=== PATIENT | female | born 1935 | race Caucasian/White ===

== ENCOUNTER 2016-10-29 12:04 | Emergency (ER) | payer MEDICAID, MEDICARE ==
[2016-10-29] MEDS ORDERED: Sodium Chloride 0.9% 1,000 ML IV SCH (12:45)
--- NOTE | 2016-10-29 14:00 | EDM.PDOC ---
ED HPI GENERAL MEDICAL PROBLEM - General Chief Complaint: Syncope Stated Complaint: PASSED OUT; DIZZINESS Time Seen by Provider: 10/29/16 12:35 Source of Information: Reports: Patient History Limitations: Reports: No Limitations - History of Present Illness INITIAL COMMENTS - FREE TEXT/NARRATIVE: History of present illness: [80-year-old female who was playing mini golf and had a brief syncopal episode with a B3 to 4 seconds of loss of consciousness. One of the family members is a family physician and assessed her at the time in her pulse was a little thready and weak but she quickly gained consciousness and came into the emergency room to be evaluated. She is on 3 different antihypertensive medications she takes all of them at the same time in the morning. One of them is hydrochlorothiazide. She otherwise been feeling well. At the time that I'm seeing her in the ER she feels well and somewhat annoyed that she is in the ER and is anxious to go. Denies any chest pain or shortness of breath.] Review of systems: As per history of present illness and below otherwise all systems reviewed and negative. Past medical history: As per history of present illness and as reviewed below otherwise noncontributory. Surgical history: As per history of present illness and as reviewed below otherwise noncontributory. Social history: No reported history of drug or alcohol abuse. Family history: As per history of present illness and as reviewed below otherwise noncontributory. Physical exam: HEENT: Atraumatic, normocephalic, Lungs: Clear to auscultation, Heart: S1S2, regular, Abdomen: Soft, nondistended, nontender. Pelvis: Stable nontender. Genitourinary: Deferred. Rectal: Deferred. Extremities: Atraumatic, negative for cords or calf pain. Neuro: Awake, alert, oriented. Exam nonfocal. Diagnostics: [CBC and basic metabolic panel were done and her BUN/creatinine suggest that she was and is a little dehydrated. The hydrochlorothiazide of course is contributing to this finding. 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 She was in a sinus rhythm with no current ischemia or injury.] Therapeutics: [She received IV fluids while in the ER] Impression: [Syncope Dehydration] Plan: [We discussed the need to stay well hydrated and we are recommending that she not take all of her blood pressure medications at the same time. ] Definitive disposition and diagnosis as appropriate pending reevaluation and review of above. - Related Data Allergies Allergy/AdvReac Type Severity Reaction Status Date / Time No Known Allergies Allergy Verified 10/29/16 12:45 Home Meds: Home Meds Hydrochlorothiazide 1 tab PO DAILY 10/29/16 [History] Lisinopril 1 tab PO DAILY 10/29/16 [History] Lovastatin 1 tab PO DAILY 10/29/16 [History] amLODIPine [Norvasc] 1 tab PO DAILY 10/29/16 [History] Past Medical History - Past Health History Medical/Surgical History: Denies Medical/Surgical History Social & Family History - Tobacco Use Smoking Status *Q: Never Smoker ED ROS GENERAL - Review of Systems Review Of Systems: ROS reveals no pertinent complaints other than HPI. - Physical Exam Exam: See Below Course - Vital Signs Last Recorded V/S: Last Vital Signs Temp 35.6 C 10/29/16 13:48 Pulse 91 10/29/16 13:48 Resp 18 10/29/16 13:48 BP 129/95 H 10/29/16 13:48 Pulse Ox 95 10/29/16 13:48 - Orders/Labs/Meds Orders: Active Orders 24 hr Category Date Time Status EKG Documentation Completion [RC] ASDIRECTED Care 10/29/16 12:47 Active Sodium Chloride 0.9% [Normal Saline] 1,000 ml Med 10/29/16 12:45 Active IV ASDIRECTED EKG 12 Lead [EK] Stat Ther 10/29/16 12:47 Ordered Medication Orders Sodium Chloride (Normal Saline) 1,000 mls @ 500 mls/hr IV ASDIRECTED ZANE Last Admin: 10/29/16 13:50 Dose: 500 mls/hr Labs: Laboratory Tests 10/29/16 10/29/16 Range/Units 12:50 12:50 WBC 6.3 (4.5-11.0) K/uL RBC 4.62 (3.30-5.50) M/uL Hgb 14.8 (12.0-15.0) g/dL Hct 43.5 (36.0-48.0) % MCV 94 (80-98) fL MCH 32 H (27-31) pg MCHC 34 (32-36) % Plt Count 188 (150-400) K/uL Neut % (Auto) 64 (36-66) % Lymph % (Auto) 18 L (24-44) % [place] % (Auto) 15 H (2-6) % Eos % (Auto) 1 L (2-4) % Baso % (Auto) 1 (0-1) % Sodium 138 L (140-148) mmol/L Potassium 3.9 (3.6-5.2) mmol/L Chloride 101 (100-108) mmol/L Carbon Dioxide 26 (21-32) mmol/L Anion Gap 14.9 H (5.0-14.0) mmol/L BUN 29 H (7-18) mg/dL Creatinine 1.4 H (0.6-1.0) mg/dL Est Cr Clr Drug Dosing 27.88 mL/min Estimated GFR (MDRD) 36 L (>60) Glucose 114 H (74-106) mg/dL Calcium 9.5 (8.5-10.1) mg/dL Meds: Medications Generic Name Dose Route Start Last Admin Trade Name Ankush PRN Reason Stop Dose Admin Sodium Chloride 1,000 mls @ 500 mls/hr 10/29/16 12:45 10/29/16 13:50 Normal Saline IV 500 mls/hr ASDIRECTED ZANE Administration Departure - Departure Time of Disposition: 13:58 Disposition: Home, Self-Care 01 Condition: Good Clinical Impression: Dehydration Syncope Qualifiers: Syncope type: unspecified Qualified Code(s): R55 - Syncope and collapse - Discharge Information Forms: ED Department Discharge Additional Instructions: Based on the EKG that we did it appears that you did have at one point a heart attack. I would recommend that you follow-up with your doctor and he may want to perform an echocardiogram to investigate this further. As was suggested staggering your blood pressure medications will probably help to minimize the chance of this happening again. And of course once again you will need to remember to stay well hydrated especially if you are out in the hot sun. - My Orders Last 24 Hours: My Active Orders 10/29/16 12:45 Sodium Chloride 0.9% [Normal Saline] 1,000 ml IV ASDIRECTED 10/29/16 12:47 EKG Documentation Completion [RC] ASDIRECTED EKG 12 Lead [EK] Stat - Assessment/Plan Last 24 Hours: My Active Orders 10/29/16 12:45 Sodium Chloride 0.9% [Normal Saline] 1,000 ml IV ASDIRECTED 10/29/16 12:47 EKG Documentation Completion [RC] ASDIRECTED EKG 12 Lead [EK] Stat
[2016-10-29 14:23] VITALS: BP 142/76
== END 2016-10-29 15:04 | disposition home or self-care (01) ==
LOC: JP.ED 12:04
DX: E86.0 Dehydration (principal); R55 Syncope and collapse; Z79.899 Other long term (current) drug therapy
CPT/HCPCS: 36415; 80048; 85025; 93005; 96360; 99284; J7040; 93010; 99283

== ENCOUNTER 2019-09-26 09:33 | Inpatient (IN) | payer MEDICARE ==
[2019-09-26] MEDS ORDERED: Sodium Chloride 0.9% 10 ML Syringe IV PRN (11:17)
[2019-09-26] MEDS ORDERED: Digoxin 500 MCG/2 ML Amp IV ONE ×2 (11:30→14:00)
--- NOTE | 2019-09-26 11:58 | CR ---
CHEST: Portable 09/26/2019 11:21 AM CLINICAL HISTORY:Rapid heart rate COMPARISON:None FINDINGS: The heart is enlarged. Pulmonary vascularity appears mildly cephalized. There is patchy density in both infrahilar regions. Some of this may be chronic. There are atherosclerotic changes in the aorta. There appears to be a large hiatal hernia. IMPRESSION: Cardiomegaly with vascular cephalization may represent some pulmonary venous hypertension Patchy infrahilar densities bilaterally. These are exaggerated by what appears to be a large retrocardiac hiatal hernia. This should be correlated with upright two-view chest when patient's condition allows
--- NOTE | 2019-09-26 13:18 | PCM.HP.2 ---
H&P History of Present Illness - General Date of Service: 09/26/19 Source of Information: Patient History Limitations: Reports: Altered Mental Status - History of Present Illness Initial Comments - Free Text/Narative: She recently had a Holter monitor and found to be in atrial fib. with a heart rate up to 193 beats/min. She had not been feeling good. She came in 1 week ago with a systolic blood pressure of <100. Medicine was stopped which improved her BP but the heart rate elevated. She had been on Amlodipine and Lisinopril these were both stopped. ECG did not show atrial fib. She was started on Metoprolol but still had tachycardia but BP improved when not taking Lisinopril and Amlodipine. She is admitted to control the heart rate and still control the BP. She has had no syncope. Onset of Symptoms: Reports: Gradual - Related Data Allergies/Adverse Reactions: Allergies Allergy/AdvReac Type Severity Reaction Status Date / Time No Known Allergies Allergy Verified 10/29/16 12:45 Home Medications: Home Meds Hydrochlorothiazide 25 mg PO DAILY 10/29/16 [History] Lovastatin 20 mg PO DAILY 10/29/16 [History] Calcium Carbonate/Vitamin D3 [Calcium 600 + Vit D 200] 1 tab PO DAILY 09/26/19 [History] Metoprolol Succinate 25 mg PO DAILY 09/26/19 [History] Multivitamin [Multivitamins] 1 tab PO DAILY 09/26/19 [History] Past Medical History - Past Health History Medical/Surgical History: Denies Medical/Surgical History Cardiovascular History: Reports: High Cholesterol, Hypertension [facility] History: Reports: - Infectious Disease History Infectious Disease History: Reports: Chicken Pox, Measles Social & Family History - Tobacco Use Smoking Status *Q: Never Smoker - Caffeine Use Caffeine Use: Reports: None - Recreational Drug Use Recreational Drug Use: No H&P Review of Systems - Review of Systems: Review Of Systems: See Below General: Reports: Weakness, Decreased Appetite HEENT: Reports: No Symptoms Pulmonary: Reports: Shortness of Breath Cardiovascular: Reports: Dyspnea on Exertion Gastrointestinal: Reports: No Symptoms Genitourinary: Reports: No Symptoms Musculoskeletal: Reports: No Symptoms Skin: Reports: No Symptoms Psychiatric: Reports: Other (loss of memory which has been a gradual onset.) Exam - Exam Exam: See Below - Vital Signs Vital Signs: Last Vital Signs Temp 98 F 09/26/19 10:13 Pulse 124 H 09/26/19 11:35 Resp 20 09/26/19 10:13 BP 122/90 09/26/19 10:13 Pulse Ox 90 L 09/26/19 10:13 Weight: 140 lb - Exam General: Cooperative, Moderate Distress HEENT: PERRLA, Hearing Intact, Mucosa Moist & [place], Nares Patent, Normal Nasal Septum, Posterior Pharynx Clear, Conjunctiva Clear, EOMI, EACs Clear, TMs Clear Neck: Supple, Trachea Midline, 2 Lungs: Clear to Auscultation Cardiovascular: Irregular Rhythm, Tachycardia GI/Abdominal Exam: Normal Bowel Sounds Back Exam: Normal Inspection, Full Range of Motion Extremities: Normal Inspection Peripheral Pulses: 1+: Radial (L), Radial (R) Skin: Warm, Dry Neuro Extensive - Mental Status: Other (Mild loss of memory) DTR: 1+: Bicep (L), Bicep (R) - Patient Data Lab Results Last 24 hrs: Laboratory Results - last 24 hr 09/26/19 09/26/19 09/26/19 Range/Units 11:24 11:24 11:24 WBC 8.5 (4.5-11.0) K/uL RBC 4.28 (3.30-5.50) M/uL Hgb 13.8 (12.0-15.0) g/dL Hct 41.3 (36.0-48.0) % MCV 97 (80-98) fL MCH 32 H (27-31) pg MCHC 33 (32-36) % Plt Count 166 (150-400) K/uL Neut % (Auto) 72 H (36-66) % Lymph % (Auto) 8 L (24-44) % [place] % (Auto) 20 H (2-6) % Eos % (Auto) 0 L (2-4) % Baso % (Auto) 0 (0-1) % Sodium 135 L (140-148) mmol/L Potassium 4.5 (3.6-5.2) mmol/L Chloride 99 L (100-108) mmol/L Carbon Dioxide 25 (21-32) mmol/L Anion Gap 15.5 H (5.0-14.0) mmol/L BUN 16 (7-18) mg/dL Creatinine 1.1 H (0.6-1.0) mg/dL Est Cr Clr Drug Dosing 36.36 mL/min Estimated GFR (MDRD) 47 L (>60) Glucose 120 H (74-106) mg/dL Calcium 9.1 (8.5-10.1) mg/dL Total Bilirubin 1.2 H (0.2-1.0) mg/dL AST 22 (15-37) U/L ALT 38 (12-78) U/L Alkaline Phosphatase 83 (46-116) U/L Troponin I < 0.017 (0.000-0.056) ng/mL Total Protein 6.8 (6.4-8.2) g/dL Albumin 3.5 (3.4-5.0) g/dL Globulin 3.3 (2.3-3.5) g/dL Albumin/Globulin Ratio 1.1 L (1.2-2.2) Result Diagrams: 09/26/19 11:24 09/26/19 11:24 Sepsis Event Note - Evaluation Sepsis Screening Result: No Definite Risk - Focused Exam Vital Signs: Vital Signs Temp Temp Pulse Resp BP BP Pulse Ox 09/26/19 11:35 124 H 09/26/19 10:13 98 F 128 H 20 122/90 90 L 09/26/19 09:50 98 F 140 H 27 H 130/85 87 L Date Exam was Performed: 09/27/19 Time Exam was Performed: 07:53 Problem List Initiated/Reviewed/Updated: Yes Orders Last 24hrs: Active Orders 24 hr Category Date Time Status EKG Documentation Completion [RC] ASDIRECTED Care 09/26/19 11:09 Active Regular Diet [DIET] Diet 09/26/19 Lunch Active Digoxin [Lanoxin] Med 09/26/19 14:00 Once 250 mcg IV ONETIME ONE Sodium Chloride 0.9% [Saline Flush] Med 09/26/19 11:17 Active 10 ml IV ASDIRECTED PRN EKG 12 Lead [EK] Routine Ther 09/26/19 11:08 Ordered Medication Orders Digoxin (Lanoxin) 250 mcg IV ONETIME ONE Stop: 09/26/19 14:01 Sodium Chloride (Saline Flush) 10 ml IV ASDIRECTED PRN PRN Reason: LINE MAINTENCE Assessment/Plan Comment:: Assessment/Plan: #1. Atrial Fibrillation. Will consider starting on Amiodarone or Flecainide later but not presently as we need rate control first as maybe this will be all we need if we control the rate the fib will be cont rolled. Will continue with the metoprolol at the present time and increase as possible to control the rate and not cause hypotension. An echocardiogram is pending in the morning. #2. Past history of HTN. - Mortality Measure Prognosis:: Good
[2019-09-26] MEDS ORDERED: Metoprolol Tartrate 25 MG Tab PO ONE (17:28)
[2019-09-26] MEDS ORDERED: Apixaban 2.5 MG Tab PO ONE (17:35)
[2019-09-26] MEDS ORDERED: Melatonin 3 MG Tab PO ONE (23:45)
[2019-09-27] MEDS ORDERED: Metoprolol Succinate 50 MG Tab.ER PO ONE (02:21)
--- NOTE | 2019-09-27 08:03 | PCM.PN ---
- General Info Date of Service: 09/27/19 Functional Status: Reports: Pain Controlled - Review of Systems General: Reports: Weakness HEENT: Reports: No Symptoms Pulmonary: Reports: No Symptoms Cardiovascular: Reports: No Symptoms Gastrointestinal: Reports: No Symptoms Genitourinary: Reports: No Symptoms Musculoskeletal: Reports: No Symptoms Skin: Reports: No Symptoms Neurological: Reports: No Symptoms Psychiatric: Reports: Confusion - Patient Data Vitals - Most Recent: Last Vital Signs Temp 97.7 F 09/27/19 07:00 Pulse 84 09/27/19 07:00 Resp 20 09/27/19 07:00 BP 128/76 09/27/19 07:00 Pulse Ox 94 L 09/27/19 07:00 Weight - Most Recent: 140 lb Lab Results Last 24 Hours: Laboratory Results - last 24 hr 09/26/19 09/26/19 09/26/19 Range/Units 11:24 11:24 11:24 WBC 8.5 (4.5-11.0) K/uL RBC 4.28 (3.30-5.50) M/uL Hgb 13.8 (12.0-15.0) g/dL Hct 41.3 (36.0-48.0) % MCV 97 (80-98) fL MCH 32 H (27-31) pg MCHC 33 (32-36) % Plt Count 166 (150-400) K/uL Neut % (Auto) 72 H (36-66) % Lymph % (Auto) 8 L (24-44) % [place] % (Auto) 20 H (2-6) % Eos % (Auto) 0 L (2-4) % Baso % (Auto) 0 (0-1) % Sodium 135 L (140-148) mmol/L Potassium 4.5 (3.6-5.2) mmol/L Chloride 99 L (100-108) mmol/L Carbon Dioxide 25 (21-32) mmol/L Anion Gap 15.5 H (5.0-14.0) mmol/L BUN 16 (7-18) mg/dL Creatinine 1.1 H (0.6-1.0) mg/dL Est Cr Clr Drug Dosing 36.36 mL/min Estimated GFR (MDRD) 47 L (>60) Glucose 120 H (74-106) mg/dL Calcium 9.1 (8.5-10.1) mg/dL Total Bilirubin 1.2 H (0.2-1.0) mg/dL AST 22 (15-37) U/L ALT 38 (12-78) U/L Alkaline Phosphatase 83 (46-116) U/L Troponin I < 0.017 (0.000-0.056) ng/mL Total Protein 6.8 (6.4-8.2) g/dL Albumin 3.5 (3.4-5.0) g/dL Globulin 3.3 (2.3-3.5) g/dL Albumin/Globulin Ratio 1.1 L (1.2-2.2) Digoxin (0.90-2.00) ng/mL 09/27/19 Range/Units 04:42 WBC (4.5-11.0) K/uL RBC (3.30-5.50) M/uL Hgb (12.0-15.0) g/dL Hct (36.0-48.0) % MCV (80-98) fL MCH (27-31) pg MCHC (32-36) % Plt Count (150-400) K/uL Neut % (Auto) (36-66) % Lymph % (Auto) (24-44) % [place] % (Auto) (2-6) % Eos % (Auto) (2-4) % Baso % (Auto) (0-1) % Sodium (140-148) mmol/L Potassium (3.6-5.2) mmol/L Chloride (100-108) mmol/L Carbon Dioxide (21-32) mmol/L Anion Gap (5.0-14.0) mmol/L BUN (7-18) mg/dL Creatinine (0.6-1.0) mg/dL Est Cr Clr Drug Dosing mL/min Estimated GFR (MDRD) (>60) Glucose (74-106) mg/dL Calcium (8.5-10.1) mg/dL Total Bilirubin (0.2-1.0) mg/dL AST (15-37) U/L ALT (12-78) U/L Alkaline Phosphatase (46-116) U/L Troponin I (0.000-0.056) ng/mL Total Protein (6.4-8.2) g/dL Albumin (3.4-5.0) g/dL Globulin (2.3-3.5) g/dL Albumin/Globulin Ratio (1.2-2.2) Digoxin 1.36 (0.90-2.00) ng/mL Med Orders - Current: Current Medications Digoxin (Lanoxin) 250 mcg PO DAILY@1300 [facility] Melatonin (Melatonin) 9 mg PO BEDTIME [facility] Metoprolol Succinate (Toprol Xl) 100 mg PO DAILY [facility] Sodium Chloride (Saline Flush) 10 ml IV ASDIRECTED PRN PRN Reason: LINE MAINTENCE Discontinued Medications Apixaban (Eliquis) 2.5 mg PO BID ONE Stop: 09/26/19 17:36 Last Admin: 09/26/19 17:50 Dose: 2.5 mg Documented by: Digoxin (Lanoxin) 500 mcg IV ONETIME ONE Stop: 09/26/19 11:31 Last Admin: 09/26/19 11:35 Dose: 500 mcg Documented by: Digoxin (Lanoxin) 250 mcg IV ONETIME ONE Stop: 09/26/19 14:01 Last Admin: 09/26/19 13:51 Dose: 250 mcg Documented by: Digoxin (Lanoxin) 250 mcg PO ONETIME ONE Stop: 09/27/19 17:35 Melatonin (Melatonin) 9 mg PO BEDTIME [facility] Melatonin (Melatonin) 9 mg PO ONETIME ONE Stop: 09/26/19 23:46 Last Admin: 09/27/19 00:00 Dose: 9 mg Documented by: Metoprolol Succinate (Toprol Xl) 50 mg PO DAILY [facility] Metoprolol Succinate (Toprol Xl) 75 mg PO ONETIME ONE Stop: 09/27/19 02:22 Last Admin: 09/27/19 02:46 Dose: 75 mg Documented by: Metoprolol Tartrate (Lopressor) 25 mg PO ONETIME ONE Stop: 09/26/19 17:29 Last Admin: 09/26/19 17:51 Dose: 25 mg Documented by: - Exam General: Cooperative, No Acute Distress HEENT: Pupils Equal, Pupils Reactive, EOMI, Mucous Membr. Moist/[place] Neck: Supple Cardiovascular: Irregular Rhythm, Tachycardia GI/Abdominal Exam: Normal Bowel Sounds, Soft, Non-Tender, No Organomegaly, No Distention, No Abnormal Bruit, No Mass, Pelvis Stable Back Exam: Normal Inspection, Full Range of Motion Extremities: Non-Tender Peripheral Pulses: 1+: Radial (L), Radial (R) Skin: Warm, Dry, Intact Psy/Mental Status: Labile Mood Sepsis Event Note - Evaluation Sepsis Screening Result: No Definite Risk - Focused Exam Vital Signs: Vital Signs Temp Pulse Resp BP BP Pulse Ox 09/27/19 07:00 97.7 F 84 20 128/76 94 L 09/27/19 06:00 95 20 09/27/19 04:44 112 H 26 H 143/101 H 92 L 09/27/19 04:00 115 H 24 H 09/27/19 03:22 117 H 150/112 H 09/27/19 03:00 133 H 09/27/19 02:46 121 H 139/95 H 09/27/19 02:00 121 H 09/27/19 01:00 119 H 21 H 139/95 H 94 L 09/27/19 00:00 121 H 09/26/19 22:52 95 09/26/19 21:51 94 09/26/19 21:00 99 09/26/19 20:00 97 Date Exam was Performed: 09/27/19 Time Exam was Performed: 07:58 - Problem List Review Problem List Initiated/Reviewed/Updated: Yes - My Orders Last 24 Hours: My Active Orders 09/26/19 11:08 EKG 12 Lead [EK] Routine 09/26/19 11:09 EKG Documentation Completion [RC] ASDIRECTED 09/26/19 11:17 Sodium Chloride 0.9% [Saline Flush] 10 ml IV ASDIRECTED PRN 09/26/19 Lunch Regular Diet [DIET] 09/27/19 07:00 Echo Comp wo Cont [US] Timed 09/27/19 09:00 Metoprolol Succinate [Toprol XL] 100 mg PO DAILY 09/27/19 13:00 Digoxin [Lanoxin] 250 mcg PO DAILY@1300 09/27/19 21:00 Melatonin 9 mg PO BEDTIME - Plan Plan:: Assessment/Plan: #1. Atrial Fibrillation. I have increased metoprolol to 100 mg ER. An echocardiogram is pending this morning. Will discharge home in the morning if BP is stable and the heart rate is improved. Dig level is 1.36. #2. Past history of HTN.
[2019-09-27] MEDS ORDERED: Metoprolol Succinate 50 MG Tab.ER PO SCH (09:00)
[2019-09-27] MEDS: Metoprolol Succinate 50 MG Tab.ER PO SCH (09:28)
[2019-09-27] MEDS: Apixaban 2.5 MG Tab PO SCH ×2 (09:28→20:37)
[2019-09-27] MEDS ORDERED: Sodium Chloride 0.9% 10 ML Syringe FLUSH ONE (11:21)
[2019-09-27] MEDS ORDERED: Iopamidol 755 Mg/ML 100 ML Bottle IV SCH (11:30)
[2019-09-27] MEDS ORDERED: Sodium Chloride 0.9% 100 ML IV SCH (11:30)
[2019-09-27] MEDS ORDERED: Digoxin 125 MCG Tab PO SCH (13:00)
--- NOTE | 2019-09-27 13:41 | CT ---
Ang Chest CLINICAL HISTORY: Hypoxia TECHNIQUE: Thin section axial contiguous tomographic sections were taken through the chest after bolus IV iodinated contrast administration. Coronal and sagittal images were reconstructed. Auto dosage reduction and iterative reconstruction techniques employed. FINDINGS: Patient has small to moderate bilateral pleural effusions. 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 There are some groundglass opacities in both lower lobes. This may represent some mild dependent atelectasis and edema. There is a moderate amount of contrast still in the vena cava and right atrium and right ventricle. There is some reflux into the IVC and hepatic veins suggesting some cardiac decompensation. There is no filling defects in the pulmonary outflow tract or pulmonary arteries. Aorta has atheromatous change. No mediastinal mass or lymphadenopathy is identified. IMPRESSION: No evidence pulmonary embolus Delay in contrast through the heart with some reflux into the IVC and hepatic veins suggests cardiac decompensation. Small to moderate bilateral pleural effusions. There is some mild groundglass opacifications in both lower lobes which may represent some mild edema Large hiatal hernia
[2019-09-27] MEDS ORDERED: Furosemide 20 MG/2 ML VIAL IVPUSH ONE (14:00)
[2019-09-27] MEDS ORDERED: Digoxin 125 MCG Tab PO ONE (17:34)
[2019-09-27] MEDS ORDERED: Melatonin 3 MG Tab PO SCH ×2 (21:00→23:22)
[2019-09-28 07:26] VITALS: BP 155/94
[2019-09-28 08:09] VITALS: PULSE 104
[2019-09-28] MEDS: Apixaban 2.5 MG Tab PO SCH (08:09)
[2019-09-28] MEDS: Metoprolol Succinate 50 MG Tab.ER PO SCH (08:09)
--- NOTE | 2019-09-28 09:28 | PCM.PN ---
- General Info Date of Service: 09/28/19 Subjective Update: She is resting presently. She was confused most of the night. Functional Status: Reports: Pain Controlled - Review of Systems General: Reports: Weakness HEENT: Reports: No Symptoms Pulmonary: Reports: No Symptoms Cardiovascular: Reports: No Symptoms Gastrointestinal: Reports: No Symptoms Genitourinary: Reports: No Symptoms Musculoskeletal: Reports: No Symptoms Skin: Reports: No Symptoms Neurological: Reports: No Symptoms Psychiatric: Reports: Confusion - Patient Data Vitals - Most Recent: Last Vital Signs Temp 96.8 F L 09/28/19 07:00 Pulse 104 H 09/28/19 08:09 Resp 20 09/28/19 08:00 BP 155/94 H 09/28/19 08:09 Pulse Ox 91 L 09/28/19 08:00 Weight - Most Recent: 140 lb 0.002 oz I&O - Last 24 Hours: Intake & Output 09/27/19 09/28/19 09/28/19 22:59 06:59 14:59 Intake Total 180 Output Total 700 Balance -520 Med Orders - Current: Current Medications Apixaban (Eliquis) 2.5 mg PO BID [facility] Last Admin: 09/28/19 08:09 Dose: 2.5 mg Documented by: Digoxin (Lanoxin) 250 mcg PO DAILY@1300 [facility] Last Admin: 09/27/19 14:05 Dose: 250 mcg Documented by: Melatonin (Melatonin) 9 mg PO BEDTIME [facility] Last Admin: 09/27/19 20:37 Dose: 9 mg Documented by: Metoprolol Succinate (Toprol Xl) 100 mg PO DAILY [facility] Last Admin: 09/28/19 08:09 Dose: 100 mg Documented by: Sodium Chloride (Saline Flush) 10 ml IV ASDIRECTED PRN PRN Reason: LINE MAINTENCE Discontinued Medications Apixaban (Eliquis) 2.5 mg PO BID ONE Stop: 09/26/19 17:36 Last Admin: 09/26/19 17:50 Dose: 2.5 mg Documented by: Digoxin (Lanoxin) 500 mcg IV ONETIME ONE Stop: 09/26/19 11:31 Last Admin: 09/26/19 11:35 Dose: 500 mcg Documented by: Digoxin (Lanoxin) 250 mcg IV ONETIME ONE Stop: 09/26/19 14:01 Last Admin: 09/26/19 13:51 Dose: 250 mcg Documented by: Digoxin (Lanoxin) 250 mcg PO ONETIME ONE Stop: 09/27/19 17:35 Furosemide (Lasix) 20 mg IVPUSH ONETIME ONE Stop: 09/27/19 14:01 Last Admin: 09/27/19 14:06 Dose: 20 mg Documented by: Sodium Chloride (Normal Saline) 100 mls @ 3 mls/sec IV ASDIRECTED [facility] Stop: 09/27/19 11:31 Last Admin: 09/27/19 13:07 Dose: 4 mls/sec Documented by: Iopamidol (Isovue-370 (76%)) 100 ml IV . DIRECTED [facility] Stop: 09/27/19 12:30 Last Admin: 09/27/19 13:08 Dose: 100 ml Documented by: Melatonin (Melatonin) 9 mg PO BEDTIME [facility] Melatonin (Melatonin) 9 mg PO ONETIME ONE Stop: 09/26/19 23:46 Last Admin: 09/27/19 00:00 Dose: 9 mg Documented by: Metoprolol Succinate (Toprol Xl) 50 mg PO DAILY [facility] Metoprolol Succinate (Toprol Xl) 75 mg PO ONETIME ONE Stop: 09/27/19 02:22 Last Admin: 09/27/19 02:46 Dose: 75 mg Documented by: Metoprolol Tartrate (Lopressor) 25 mg PO ONETIME ONE Stop: 09/26/19 17:29 Last Admin: 09/26/19 17:51 Dose: 25 mg Documented by: Sodium Chloride (Saline Flush) 10 ml FLUSH ONETIME ONE Stop: 09/27/19 11:22 Last Admin: 09/27/19 13:07 Dose: 10 ml Documented by: - Exam General: Cooperative, No Acute Distress HEENT: Pupils Equal, Pupils Reactive, EOMI, Mucous Membr. Moist/[place] Neck: Supple Lungs: Clear to Auscultation, Normal Respiratory Effort Cardiovascular: Irregular Rhythm GI/Abdominal Exam: Normal Bowel Sounds, Soft, Non-Tender, No Organomegaly, No Distention, No Abnormal Bruit, No Mass, Pelvis Stable Extremities: Normal Inspection, Normal Range of Motion, Non-Tender, No Pedal Edema, Normal Capillary Refill Peripheral Pulses: 1+: Radial (L), Radial (R) Skin: Warm, Dry, Intact Neurological: No New Focal Deficit Psy/Mental Status: Other (confusion with memory loss) Sepsis Event Note - Evaluation Sepsis Screening Result: No Definite Risk - Focused Exam Vital Signs: Vital Signs Temp Pulse Resp BP BP Pulse Ox 09/28/19 08:09 104 H 155/94 H 09/28/19 08:00 95 20 155/94 H 91 L 09/28/19 07:00 96.8 F L 98 21 H 155/94 H 92 L 09/28/19 05:18 91 22 H 09/28/19 04:51 97 09/28/19 04:00 95 24 H 09/28/19 03:00 97.6 F 98 22 H 152/98 H 93 L 09/28/19 01:00 99 09/28/19 00:00 76 09/27/19 23:00 104 H 20 136/74 3 L 09/27/19 21:56 95 Date Exam was Performed: 09/28/19 Time Exam was Performed: 09:22 - Problem List Review Problem List Initiated/Reviewed/Updated: Yes - My Orders Last 24 Hours: My Active Orders 09/27/19 09:00 Apixaban [Eliquis] 2.5 mg PO BID Metoprolol Succinate [Toprol XL] 100 mg PO DAILY 09/27/19 13:00 Digoxin [Lanoxin] 250 mcg PO DAILY@1300 09/27/19 21:00 Melatonin 9 mg PO BEDTIME - Plan Plan:: Assessment/Plan: #1. Atrial Fibrillation. I have increased metoprolol to 100 mg ER. An echocardiogram reported verbally a normal EF but waiting for the official report which I expect will show right heart failure. Will discharge home today. #2. Hypoxemia: will follow as an outpatient and begin oxygen if needed. #3. Past history of HTN.
[2019-09-28] MEDS ORDERED: Hydrochlorothiazide 25 MG Tab PO ONE (09:35)
--- NOTE | 2019-09-28 09:40 | PCM.DCSUM1 ---
Discharge Summary - Hospital Course Free Text/Narrative:: Admitted with a documented history of tachycardia and an irregular heart rate. Diagnosis: Stroke: No - Discharge Data Discharge Date: 09/28/19 Discharge Disposition: Home, Self-Care 01 Condition: Good - Referral to Home Health Primary Care Physician: Andres Warren Sr, MD - Patient Summary/Data Hospital Course: Started on digoxin and increased the Metoprolol and the heart rate and blood pressure improved. She was confused most of the time especially at night while in the hospital. Oxygen level was low and had a CT with PE protocol which was neg. for a PE but showed right heart concern. The echocardiogram showed a normal EF but do not have the official report which I expect will show right heart failure. - Patient Instructions Diet: Heart Healthy Diet Activity: As Tolerated - Discharge Plan *PRESCRIPTION DRUG MONITORING PROGRAM REVIEWED*: No Prescriptions/Med Rec: Digoxin [Digitek] 125 mcg PO DAILY 30 Days #30 tablet Home Medications: Home Meds Hydrochlorothiazide 25 mg PO DAILY 10/29/16 [History] Lovastatin 20 mg PO DAILY 10/29/16 [History] Calcium Carbonate/Vitamin D3 [Calcium 600 + Vit D 200] 1 tab PO DAILY 09/26/19 [History] Apixaban [Eliquis] 2.5 mg PO BID tablet 09/28/19 [Rx] Digoxin [Digitek] 125 mcg PO DAILY 30 Days #30 tablet 09/28/19 [Rx] Metoprolol Succinate [Toprol XL 50mg] 100 mg PO DAILY tab.er 09/28/19 [Rx] - Discharge Summary/Plan Comment DC Time >30 min.: No Discharge Summary/Plan Comment: Assessment/Plan: #1. Atrial Fibrillation. I have increased metoprolol to 100 mg ER. An echocardiogram reported verbally a normal EF but waiting for the official report which I expect will show right heart failure. Will discharge home today. #2. Hypoxemia: will follow as an outpatient and begin oxygen if needed. #3. Past history of HTN. - General Info Date of Service: 09/28/19 Functional Status: Reports: Pain Controlled - Review of Systems General: Reports: Weakness HEENT: Reports: No Symptoms Pulmonary: Reports: No Symptoms Cardiovascular: Reports: No Symptoms Gastrointestinal: Reports: No Symptoms Genitourinary: Reports: No Symptoms Musculoskeletal: Reports: No Symptoms Skin: Reports: No Symptoms Neurological: Reports: No Symptoms Psychiatric: Reports: Confusion - Patient Data Vitals - Most Recent: Last Vital Signs Temp 96.8 F L 09/28/19 07:00 Pulse 104 H 09/28/19 08:09 Resp 20 09/28/19 08:00 BP 155/94 H 09/28/19 08:09 Pulse Ox 91 L 09/28/19 08:00 Weight - Most Recent: 140 lb 0.002 oz I&O - Last 24 hours: Intake & Output 09/27/19 09/28/19 09/28/19 22:59 06:59 14:59 Intake Total 180 Output Total 700 Balance -520 Med Orders - Current: Current Medications Apixaban (Eliquis) 2.5 mg PO BID [facility] Last Admin: 09/28/19 08:09 Dose: 2.5 mg Documented by: Digoxin (Lanoxin) 250 mcg PO DAILY@1300 [facility] Last Admin: 09/27/19 14:05 Dose: 250 mcg Documented by: Hydrochlorothiazide (Hydrochlorothiazide) 25 mg PO ONETIME ONE Stop: 09/28/19 09:36 Melatonin (Melatonin) 9 mg PO BEDTIME [facility] Last Admin: 09/27/19 20:37 Dose: 9 mg Documented by: Metoprolol Succinate (Toprol Xl) 100 mg PO DAILY [facility] Last Admin: 09/28/19 08:09 Dose: 100 mg Documented by: Sodium Chloride (Saline Flush) 10 ml IV ASDIRECTED PRN PRN Reason: LINE MAINTENCE Discontinued Medications Apixaban (Eliquis) 2.5 mg PO BID ONE Stop: 09/26/19 17:36 Last Admin: 09/26/19 17:50 Dose: 2.5 mg Documented by: Digoxin (Lanoxin) 500 mcg IV ONETIME ONE Stop: 09/26/19 11:31 Last Admin: 09/26/19 11:35 Dose: 500 mcg Documented by: Digoxin (Lanoxin) 250 mcg IV ONETIME ONE Stop: 09/26/19 14:01 Last Admin: 09/26/19 13:51 Dose: 250 mcg Documented by: Digoxin (Lanoxin) 250 mcg PO ONETIME ONE Stop: 09/27/19 17:35 Furosemide (Lasix) 20 mg IVPUSH ONETIME ONE Stop: 09/27/19 14:01 Last Admin: 09/27/19 14:06 Dose: 20 mg Documented by: Sodium Chloride (Normal Saline) 100 mls @ 3 mls/sec IV ASDIRECTED [facility] Stop: 09/27/19 11:31 Last Admin: 09/27/19 13:07 Dose: 4 mls/sec Documented by: Iopamidol (Isovue-370 (76%)) 100 ml IV . DIRECTED [facility] Stop: 09/27/19 12:30 Last Admin: 09/27/19 13:08 Dose: 100 ml Documented by: Melatonin (Melatonin) 9 mg PO BEDTIME [facility] Melatonin (Melatonin) 9 mg PO ONETIME ONE Stop: 09/26/19 23:46 Last Admin: 09/27/19 00:00 Dose: 9 mg Documented by: Metoprolol Succinate (Toprol Xl) 50 mg PO DAILY [facility] Metoprolol Succinate (Toprol Xl) 75 mg PO ONETIME ONE Stop: 09/27/19 02:22 Last Admin: 09/27/19 02:46 Dose: 75 mg Documented by: Metoprolol Tartrate (Lopressor) 25 mg PO ONETIME ONE Stop: 09/26/19 17:29 Last Admin: 09/26/19 17:51 Dose: 25 mg Documented by: Sodium Chloride (Saline Flush) 10 ml FLUSH ONETIME ONE Stop: 09/27/19 11:22 Last Admin: 09/27/19 13:07 Dose: 10 ml Documented by: - Exam General: Reports: Cooperative HEENT: Reports: Pupils Equal, Pupils Reactive, EOMI, Mucous Membr. Moist/[place] Neck: Reports: Supple Lungs: Reports: Clear to Auscultation, Normal Respiratory Effort Cardiovascular: Reports: Irregular Rhythm GI/Abdominal Exam: Normal Bowel Sounds, Soft, Non-Tender, No Organomegaly, No Distention, No Abnormal Bruit, No Mass, Pelvis Stable Back Exam: Reports: Normal Inspection, Full Range of Motion Extremities: Normal Inspection, Normal Range of Motion, Non-Tender, No Pedal Edema, Normal Capillary Refill Skin: Reports: Warm, Dry, Intact Psy/Mental Status: Reports: Other (confusion at night)
== END 2019-09-28 10:17 | disposition home or self-care (01) | DRG 310 ==
LOC: JP.ICU 09:33
PROVIDERS: ADMIT Internal Medicine; ATTEND Internal Medicine
DX: I48.91 Unspecified atrial fibrillation (principal); E78.00 Pure hypercholesterolemia, unspecified; I10 Essential (primary) hypertension; R09.02 Hypoxemia; Z79.899 Other long term (current) drug therapy
CPT/HCPCS: 36415; 71045; 71045-26; 71275; 71275-26; 80053; 80162; 84484; 85025; 93005; 93306; A9270-GY; J1160; J1940; J7050; Q9967